=== PATIENT | male | born 1965 | race Two or more races ===

== ENCOUNTER 2017-07-08 15:54 | Emergency (ER) | payer OTHER ==
[~2017-07-08] VITALS: Ht 177.8 cm; Wt 150.4 kg
[2017-07-08] MEDS ORDERED: SODIUM CHLORIDE 0.9% 1,000ML IVBOLUS ONE (16:30)
[2017-07-08] MEDS ORDERED: ONDANSETRON 2MG/ML, 2ML IVPush ONE (16:30)
[2017-07-08] MEDS ORDERED: HYDROmorphone 1 MG/ML, 1ML IVPush PRN (16:30)
[2017-07-08] MEDS ORDERED: SODIUM CHLORIDE FLUSH 10ML SYR IVF ONE (16:30)
[2017-07-08] MEDS ORDERED: ONDANSETRON 2MG/ML, 2ML ONE (16:33)
[2017-07-08] MEDS ORDERED: HYDROmorphone 2 MG/ML, 1ML ONE (16:33)
[2017-07-08 16:54] LABS: BASOPHILS % (AUTO) 2 % (0-1); EOSINOPHILS # (AUTO) 0.21 x10^3/uL (0-0.4); EOSINOPHILS % (AUTO) 2 % (1-7); LYMPHOCYTES # (AUTO) 1.56 x10^3/uL (1-3.4); LYMPHOCYTES % (AUTO) 14 % (22-44); MD NO; MEAN CORPUSCULAR HEMOGLOBIN 29.8 pg (27.5-34.5); MEAN CORPUSCULAR HGB CONC 33.4 g/dL (33.2-36.2); MEAN CORPUSCULAR VOLUME 89.3 fL (81-97); MEAN PLATELET VOLUME 8.9 fL (7.4-10.4); MONOCYTES # (AUTO) 0.44 x10^3/uL (0.2-0.8); MONOCYTES % (AUTO) 4 % (2-9); NEUTROPHILS # (AUTO) 8.65 x10^3/uL (1.8-6.8); NEUTROPHILS % (AUTO) 78 % (42-75); PLATELET COUNT 341 x10^3/uL (130-400); RED BLOOD COUNT 4.87 x10^6/uL (4.38-5.82); RED CELL DISTRIBUTION WIDTH 14.1 % (9.4-14.8)
[2017-07-08 17:03] LABS: ALBUMIN 3.3 g/dL (3.4-5.0); ANION GAP 8 mmol/L (5-15); CALCIUM 8.5 mg/dL (8.5-10.1); CHLORIDE 103 mmol/L (98-107)
[2017-07-08 17:06] LABS: ALANINE AMINOTRANSFERASE 24 U/L (12-78); ALKALINE PHOSPHATASE 70 U/L (45-117); BILIRUBIN,TOTAL 0.5 mg/dL (0.2-1.0); CREATININE 1.12 mg/dL (0.7-1.3); TOTAL PROTEIN 8.4 g/dL (6.4-8.2)
[2017-07-08 17:11] VITALS: BP 129/67
[2017-07-08 17:40] LABS: MICROSCOPIC NOT IND
[2017-07-08 17:51] LABS: CULTURE INDICATED? NO
[2017-07-08] MEDS ORDERED: OMNIPAQUE 350 MG/ML, 150 ML BOTTLE ONE (18:35)
[2017-07-08 18:44] LABS: TROPONIN I < 0.015 ng/mL (0.000-0.045)
== END 2017-07-08 19:39 | disposition home or self-care (01) ==
LOC: ED 18:23
DX: R10.11 Right upper quadrant pain (principal)
CPT/HCPCS: 36415; 71275; 74177; 76700; 80053; 81003; 83690; 84484; 85025; 93005; 96361; 96374; 96375; 99285; J1170; J2405; J7030; Q9967